=== PATIENT | female | born 1990 | race Caucasian/White ===

== ENCOUNTER 2016-11-15 11:50 | Emergency (ER) | payer MEDICAID, OTHER ==
[2016-11-15 11:50] VITALS: BMI 38.4
--- NOTE | 2016-11-15 12:32 | C.PDOC ---
History Of Present Illness Patient is a 26 year old female, with PMHx of anemia, presents to ED for evaluation of intermittent dizziness and abdominal pain for the last 3 days. Patient states that dizziness is on/off associated with fatigue. Pt states that abdominal pain is mostly in mid epigastric region, described as deep squeezing sensation. States pain is not associated with eating or change in position. Notes 1 episode of vomiting 2 days ago. Otherwise, denies any diarrhea, change in appetite, dysuria, hematuria, urinary frequency/retention, back pain, fever, chills, or any other associated symptoms at this time. LMP: October 09. Time Seen by Provider: 11/15/16 12:12 Chief Complaint (Nursing): Abdominal Pain History Per: Patient History/Exam Limitations: no limitations Onset/Duration Of Symptoms: Days (3) Current Symptoms Are (Timing): Still Present Severity: Moderate Location Of Pain/Discomfort: Epigastric Radiation Of Pain To:: None Quality Of Discomfort: "Pain", Other (squeezing) Associated Symptoms: Nausea, Vomiting. denies: Fever, Chills, Diarrhea, Loss Of Appetite, Back Pain, Chest Pain, Constipation, Urinary Symptoms Exacerbating Factors: None Alleviating Factors: None Recent travel outside of the [place]: No Additional History Per: Patient Abnormal Vaginal Bleeding: No Last Menstral Period: 10/09/16 Past Medical History Reviewed: Historical Data, Nursing Documentation, Vital Signs Vital Signs: Last Vital Signs Temp 97.9 F 11/15/16 14:12 Pulse 77 11/15/16 14:12 Resp 17 11/15/16 14:12 BP 107/66 11/15/16 14:12 Pulse Ox 100 11/15/16 14:12 - Medical History PMH: Anemia Denies: Depression, Chronic Kidney Disease Surgical History: - [facility] Procedures EXTRACTION OF POC, LOW CERVICAL, OPEN APPROACH (02/15/15) LOW CERVICAL (04/05/13) MEDICAL INDUCTION LABOR (04/05/13) Family History: States: No Known Family Hx - Social History Hx Tobacco Use: No Hx Alcohol Use: No Hx Substance Use: No - Immunization History Hx Tetanus Toxoid Vaccination: No Hx Influenza Vaccination: No Hx Pneumococcal Vaccination: No Review Of Systems Except As Marked, All Systems Reviewed And Found Negative. Constitutional: Negative for: Fever, Chills Cardiovascular: Negative for: Chest Pain, Palpitations, Edema Respiratory: Negative for: Shortness of Breath Gastrointestinal: Positive for: Nausea, Vomiting, Abdominal Pain. Negative for : Diarrhea, Constipation, Hematemesis Genitourinary: Negative for: Dysuria, Frequency, Incontinence, Hematuria, Vaginal Discharge, Vaginal Bleeding, Pelvic Pain Musculoskeletal: Negative for: Back Pain Neurological: Positive for: Dizziness. Negative for: Weakness, Numbness, Headache Physical Exam - Physical Exam Appears: Non-toxic, No Acute Distress Skin: Normal Color, Warm, Dry, No Rash Head: Atraumatic, Normacephalic Eye(s): bilateral: Normal Inspection Oral Mucosa: Moist Neck: Normal ROM, Supple Cardiovascular: Rhythm Regular, No Murmur Respiratory: Normal Breath Sounds, No Rales, No Rhonchi, No Wheezing Gastrointestinal/Abdominal: Soft, No Tenderness Back: Normal Inspection, No CVA Tenderness Extremity: Bilateral: Atraumatic, Normal ROM Neurological/Psych: Oriented x3, Normal Speech ED Course And Treatment - Laboratory Results Result Diagrams: 11/15/16 12:16 11/15/16 12:35 Lab Interpretation: Normal Urine POC: Positive O2 Sat by Pulse Oximetry: 99 (on RA) Pulse Ox Interpretation: Normal - CT Scan/US Pelvic ultrasound Other Rad Studies (CT/US): Read By Radiologist, Radiology Report Reviewed CT/US Interpretation: Accession No. : [id number]. Patient Name / ID : LAMAR SANTORO / [id number]. Exam Date : 11/15/2016 13:50:12 ( Approved ). Study Comment : Sex / Age : F / 26Y. Creator : Orlando Ordonez MD. Dictator : Orlando Ordonez MD. Developmental Services Worker : Air Brush Operator : Orlando Ordonez MD. Approver2 : Report Date : 11/15/2016 14:34:52. My Comment : . PROCEDURE: OB Pelvic Ultrasound. HISTORY: with abd pain. COMPARISON: None available. FINDINGS: UTERUS: Gestational sac: Single intrauterine gestation. Mean diameter 1.4 cm. Heart rate: 104 bpm. age (Ultrasound estimated): 5 weeks 6 days (mean CRL basis), mean crown- rump length measurement 0.29 cm. Caro-gestational hemorrhage: None. Date of delivery (Ultrasound estimated) : 07/12/2017. Uterus measures 9.8 x 4.4 x 6.1 cm. Appropriate size and normal appearance. CERVIX: Long and closed. No cervical abnormality seen. RIGHT OVARY: Measures 4.2 x 3.2 x 3.6 cm. No mass lesion. Normal flow. Corpus luteum cyst is suggested measuring 2.6 x 2.8 cm. LEFT OVARY: Measures 3.2 x 1.5 x 2.7 cm. No solid mass. Normal flow. FREE FLUID: None. OTHER FINDINGS: None. IMPRESSION: A single viable intrauterine gestation identified with have resolved ultrasonic age of 5 weeks 6 days based on mean crown-rump length measurement. Progress Note: Blood work, UA ordered and reviewed. On re-evaluation, abomen remains soft and non-tender. No acute distress. Reevaluation Time: 13:06 Reassessment Condition: Improved Disposition Counseled Patient/Family Regarding: Studies Performed, Diagnosis, Need For Followup - Disposition Referrals: [email or web address] [Outside] [facility] [Outside] Disposition: HOME/ ROUTINE Disposition Time: 14:49 Condition: STABLE Instructions: (ED) Forms: [facility] (Kosovan) - Clinical Impression Clinical Impression: - Scribe Statement The provider has reviewed the documentation as recorded by the Jac Genao All medical record entries made by the Cashibhugo were at my direction and personally dictated by me. I have reviewed the chart and agree that the record accurately reflects my personal performance of the history, physical exam, medical decision making, and the department course for this patient. I have also personally directed, reviewed, and agree with the discharge instructions and disposition.
[2016-11-15 12:42] LABS: BASO # 0.1 K/uL (0.0-0.2); BASO % 0.7 % (0.0-2.0); EOS # 0.2 K/uL (0.0-0.7); EOS % 1.8 % (0.0-4.0); HEMATOCRIT 32.8 % (34.0-47.0); LYMPH # 1.8 K/uL (1.0-4.3); LYMPH % 21.2 % (20.0-40.0); MEAN CELL VOLUME 87.4 fL (81.0-99.0); MEAN CORPUSCULAR HEMOGLOBIN 30.4 pg (27.0-31.0); MEAN CORPUSCULAR HGB CONC 34.8 g/dL (33.0-37.0); MEAN PLATELET VOLUME 8.9 fL (7.2-11.7); MONO # 0.5 K/uL (0.0-0.8); MONO % 6.1 % (0.0-10.0); RED CELL DISTRIBUTION WIDTH 13.6 % (11.5-14.5); WHITE BLOOD COUNT 8.4 K/uL (4.8-10.8)
[2016-11-15 12:51] LABS: CHLORIDE 100 mmol/L (98-107); POTASSIUM 3.7 mmol/L (3.6-5.2); SODIUM 138 mmol/L (132-148)
[2016-11-15 12:53] LABS: ALB/GLOB RATIO 1.4 (1.0-2.1); ALKALINE PHOSPHATASE 62 U/L (38-126); AST/SGOT 16 U/L (14-36); BILIRUBIN,TOTAL 0.4 mg/dL (0.2-1.3); BLOOD UREA NITROGEN 11 mg/dL (7-17); CARBON DIOXIDE 25 mmol/L (22-30); GFR AFRICAN-AMERICAN > 60; TOTAL PROTEIN 6.5 g/dL (6.3-8.3)
[2016-11-15 12:54] LABS: ALT/SGPT 24 U/L (9-52); GLUCOSE,RANDOM 93 mg/dL (65-105)
[2016-11-15 12:59] LABS: RBC URINE 3 /hpf (0-3); URINE BACTERIA RARE (<OCC); URINE BILIRUBIN NEGATIVE (NEGATIVE); URINE BLOOD NEGATIVE (NEGATIVE); URINE COLOR Yellow (YELLOW); URINE GLUCOSE (UA) NORMAL (Normal); URINE KETONE NEGATIVE (NEGATIVE); URINE LEUKOCYTE ESTERASE 2+ Leu/uL (Negative); URINE PROTEIN NEGATIVE (NEGATIVE); URINE UROBILINOGEN NORMAL mg/dL (0.2-1.0); WBC URINE 6 /hpf (0-5)
[2016-11-15 14:14] VITALS: BP 107/66; PULSE 77; RESP 17; TEMP 97.9
--- NOTE | 2016-11-15 14:36 | US ---
PROCEDURE: OB Pelvic Ultrasound HISTORY: with abd pain COMPARISON: None available. FINDINGS: UTERUS: Gestational sac: Single intrauterine gestation. Mean diameter 1.4 cm Heart rate: 104 bpm. age (Ultrasound estimated): 5 weeks 6 days (mean CRL basis), mean crown-rump length measurement 0.29 cm Caro-gestational hemorrhage: None. Date of delivery (Ultrasound estimated) : 07/12/2017 Uterus measures 9.8 x 4.4 x 6.1 cm. Appropriate size and normal appearance. CERVIX: Long and closed. No cervical abnormality seen. RIGHT OVARY: Measures 4.2 x 3.2 x 3.6 cm. No mass lesion. Normal flow. Corpus luteum cyst is suggested measuring 2.6 x 2.8 cm. LEFT OVARY: Measures 3.2 x 1.5 x 2.7 cm. No solid mass. Normal flow. FREE FLUID: None. OTHER FINDINGS: None. IMPRESSION: A single viable intrauterine gestation identified with have resolved ultrasonic age of 5 weeks 6 days based on mean crown-rump length measurement.
[2016-11-15 14:50] VITALS: O2SAT 99
== END 2016-11-15 14:56 | disposition home or self-care (01) ==
LOC: C.ER 11:50
DX: O26.891 Other specified pregnancy related conditions, first trimester (principal); Z3A.01 Less than 8 weeks gestation of pregnancy

== ENCOUNTER 2017-06-06 00:07 | Emergency (ER) | payer MEDICAID, OTHER ==
[2017-06-06 00:08] VITALS: BMI 38.4
[2017-06-06 00:27] VITALS: TEMP 97.7
--- NOTE | 2017-06-06 00:35 | C.PDOC ---
History Of Present Illness Patient gave a history of having difficulty breathing due to nasal congestion. Also having constipation abd gas discomfort. Time Seen by Provider: 06/06/17 00:33 Chief Complaint (Nursing): Shortness Of Breath History Per: Patient History/Exam Limitations: no limitations Onset/Duration Of Symptoms: Days Current Symptoms Are (Timing): Still Present Initiating Event: Other (nasal c ongestion) Current Respiratory Medications: None Severity: Mild Pain Scale Rating Of: 3 Associated Symptoms: denies: Fever, Chills, Sweating, Chest Pain, Bloody Cough, Productive Cough, Heart Racing, Leg/Calf Pain, Ankle/Leg Swelling, Dizziness, Light-headedness, Anxiety, Tingling In Hands Or Face, Musle Spasms In Hands Or Feet Recent travel outside of the [place]: No Additional History Per: Patient Past Medical History Vital Signs: Last Vital Signs Temp 97.7 F 06/06/17 00:15 Pulse 100 H 06/06/17 00:15 Resp 18 06/06/17 01:00 BP 143/87 06/06/17 00:15 Pulse Ox 100 06/06/17 02:02 - Medical History PMH: Anemia, Fibromyalgia Denies: Depression, Chronic Kidney Disease Surgical History: - [facility] Procedures EXTRACTION OF POC, LOW CERVICAL, OPEN APPROACH (02/15/15) LOW CERVICAL (04/05/13) MEDICAL INDUCTION LABOR (04/05/13) Family History: States: Unknown Family Hx - Social History Hx Tobacco Use: No Hx Alcohol Use: No Hx Substance Use: No - Immunization History Hx Tetanus Toxoid Vaccination: No Hx Influenza Vaccination: No Hx Pneumococcal Vaccination: No Review Of Systems ENT: Positive for: Nose Congestion Respiratory: Positive for: Shortness of Breath. Negative for: SOB with Excertion Gastrointestinal: Negative for: Nausea, Vomiting, Abdominal Pain, Diarrhea Genitourinary: Negative for: Dysuria, Frequency, Incontinence Skin: Negative for: Rash Neurological: Negative for: Weakness, Numbness, Incoordination Psych: Negative for: Anxiety, Depression ED Course And Treatment - Laboratory Results Result Diagrams: 06/06/17 01:34 06/06/17 01:34 ECG: Interpreted By Me, Viewed By Me ECG Rhythm: Sinus Tachycardia ECG Interpretation: No Acute Changes Interpretation Of ECG: Sinus tachycardia, possible LAE, bordrline tracings Rate From EC O2 Sat by Pulse Oximetry: 100 Pulse Ox Interpretation: Normal - Radiology CXR: Interpreted by Me, Viewed By Me CXR Interpretation: Yes: No Acute Disease, Other (normal chest film). No: Infiltrates Disposition Counseled Patient/Family Regarding: Diagnosis - Disposition Referrals: [facility] [Outside] Disposition: HOME/ ROUTINE Disposition Time: 02:03 Condition: STABLE Prescriptions: Docusate Sodium [Colace] 100 mg PO ASDIR #14 capsule Loratadine/Pseudoephedrine [Claritin-D 24 Hour Tablet] 1 each PO DAILY #7 tab.er.24h Instructions: Constipation in Adults, Simethicone Forms: [facility] (Colombian) - Clinical Impression Clinical Impression: Rhinitis, Constipation
[2017-06-06 01:20] VITALS: RESP 18
[2017-06-06 01:41] LABS: BASO # 0.1 K/uL (0.0-0.2); BASO % 0.5 % (0.0-2.0); EOS # 0.1 K/uL (0.0-0.7); EOS % 0.9 % (0.0-4.0); HEMOGLOBIN 13.5 g/dL (11.0-16.0); LYMPH # 2.4 K/uL (1.0-4.3); LYMPH % 21.5 % (20.0-40.0); MEAN CELL VOLUME 87.7 fL (81.0-99.0); MEAN CORPUSCULAR HEMOGLOBIN 30.1 pg (27.0-31.0); MEAN CORPUSCULAR HGB CONC 34.3 g/dL (33.0-37.0); MEAN PLATELET VOLUME 8.7 fL (7.2-11.7); MONO # 0.7 K/uL (0.0-0.8); NEUT % 71.1 % (50.0-75.0); NRBC % 0.1 % (0.0-2.0); RBC 4.5 Mil/uL (3.80-5.20); RED CELL DISTRIBUTION WIDTH 12.9 % (11.5-14.5); WHITE BLOOD COUNT 11.3 K/uL (4.8-10.8)
[2017-06-06 01:53] LABS: ALB/GLOB RATIO 1.4 (1.0-2.1); ALBUMIN 4.8 g/dL (3.5-5.0); ALT/SGPT 27 U/L (9-52); AST/SGOT 24 U/L (14-36); BLOOD UREA NITROGEN 7 mg/dL (7-17); CALCIUM 9.8 mg/dl (8.6-10.4); GFR AFRICAN-AMERICAN > 60; GFR NON-AFRICAN AMERICAN > 60
[2017-06-06] MEDS ORDERED: Potassium Chloride 10 mEq ER Tab PO STA (02:00)
[2017-06-06] MEDS ORDERED: Sucralfate 1 gm/10 ml Oral Susp UD PO STA (02:07)
[2017-06-06] MEDS ORDERED: Potassium Chloride 10 mEq ER Tab PO ONE (02:25)
[2017-06-06] MEDS ORDERED: Sucralfate 1 gm/10 ml Oral Susp UD ONE (02:25)
[2017-06-06 02:30] VITALS: BP 134/75; PULSE 75; O2SAT 99
--- NOTE | 2017-06-06 09:01 | RAD ---
HISTORY: SOB COMPARISON: No prior. TECHNIQUE: Chest PA and lateral FINDINGS: LUNGS: No active pulmonary disease. PLEURA: No significant pleural effusion identified. No pneumothorax apparent. CARDIOVASCULAR: Normal. OSSEOUS STRUCTURES: No significant abnormalities. VISUALIZED UPPER ABDOMEN: Normal. OTHER FINDINGS: None. IMPRESSION: No active disease.
--- NOTE | 2017-06-09 21:42 | CARD ---
APPROVED REPORT EKG Measurement Heart [id number] <Conclusion> Sinus tachycardia Possible Left atrial enlargement Borderline ECG
== END 2017-06-06 02:37 | disposition home or self-care (01) ==
LOC: C.ER 00:07
DX: J31.0 Chronic rhinitis (principal); K59.00 Constipation, unspecified; D64.9 Anemia, unspecified